=== PATIENT | female | born 1950 | race Caucasian/White ===

== ENCOUNTER 2025-05-24 22:58 | Emergency (ER) | payer MEDICARE ==
[2025-05-25 00:02] LABS: #Basophils 0.1 thou/uL (0.0-0.2); #Eosinophils 0.0 thou/uL (0.0-0.7); #Lymphocytes 1.4 thou/uL (1.20-3.40); #Monocytes 0.2 thou/uL (0.11-0.59); #Neutrophils 2.6 thou/uL (1.40-6.50); %Basophils 2.5 % (0.0-1.0); %Eosinophils 0.8 % (0.0-10.0); %Lymphocytes 31.8 % (21.0-51.0); %Monocytes 4.2 % (0.0-10.0); %Neutrophils 60.7 % (42.0-75.0); Hematocrit 38.2 % (36.0-47.0); Hemoglobin 13.7 g/dL (12.0-16.0); Mean Corpuscular Hemoglobin 30.7 pg (27.0-31.0); Mean Corpuscular Volume 85.6 fl (78.0-98.0); Platelet Count 237 10x3/uL (130-400); Red Blood Cell (RBC) Count 4.46 mill/uL (4.20-5.40); White Blood Cell (WBC) Count 4.3 10x3/uL (4.8-10.8)
[2025-05-25 00:04] LABS: ALT (SGPT) 11 U/L (Less than 34); AST (SGOT) 21 U/L (11-34); Albumin 3.8 g/dL (3.1-4.5); Alkaline Phosphatase 60 U/L (40-110); Anion Gap 16 mmol/L (10-20); BUN (Urea Nitrogen) 11 mg/dL (9.8-20.1); Bilirubin, Total 0.3 mg/dL (0.3-1.2); Calc. Creatinine Clearance 0 mL/min (70-130); Calcium 9.0 mg/dL (7.8-10.44); Carbon Dioxide 23 mmol/L (23-31); Chloride 104 mmol/L (98-107); Globulin 2.8 g/dL (2.4-3.5); Glucose 100 mg/dL (83-110); Lipase 27 U/L (8-78); Potassium 3.6 mmol/L (3.5-5.1); Sodium 139 mmol/L (136-145)
[2025-05-25 00:28] LABS: Glucose, Urine (Dipstick) Negative (Negative); Leukocyte Negative (Negative); Protein, Urine (Dipstick) Negative (Neg-Trace); Specific Gravity, Urine 1.020 (1.005-1.030)
[2025-05-25 00:39] LABS: Bacteria/HPF 1+ HPF (None Seen); CAUTI Indications for Culture Fever or rigors; RBC/HPF 0-3 HPF (0-3)
[2025-05-25 00:42] LABS: Urine Culture Reflex No No
== END 2025-05-25 00:47 | disposition home or self-care (01) ==
LOC: BURERS 22:58
DX: R11.0 Nausea (principal); R19.7 Diarrhea, unspecified; I10 Essential (primary) hypertension; Z79.899 Other long term (current) drug therapy
CPT/HCPCS: 80053; 81001; 83690; 85025; 96361; 96374; J2550

== ENCOUNTER 2025-07-08 15:29 | Emergency (ER) | payer MEDICARE | END 2025-07-08 17:06 | disposition home or self-care (01) | LOC: BURERS 15:29 | DX: S16.1XXA Strain of muscle, fascia and tendon at neck level, initial encounter (principal); I10 Essential (primary) hypertension; G47.00 Insomnia, unspecified; W19.XXXA Unspecified fall, initial encounter | CPT/HCPCS: 72125; 94760; Q0162 ==